=== PATIENT | male | born 1945 | race Caucasian/White ===

== ENCOUNTER 2023-01-23 12:23 | Outpatient (CLI) | payer OTHER, SELFPAY ==
--- NOTE | ~2023-01-23 | US_ITS ---
EXAMINATION: US venous doppler LE RT DATE: 01/23/2023 13:28 INDICATION: Right lower limb edema. TECHNIQUE: Grayscale ultrasound images without and with compression and Doppler ultrasound images of the right lower extremity veins were obtained. COMPARISON: None. FINDINGS: The visualized portions of right common femoral vein, profunda (deep) femoral vein, posterior tibial veins, and greater saphenous vein outflow are patent. There is thrombus in right femoral and poplitea l veins. IMPRESSION: 1. Deep vein thrombosis involving right femoral and popliteal veins. Reviewed, dictated and finalized at location A. 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
== END 2023-01-23 12:24 | disposition home or self-care (01) ==
PROVIDERS: PCP Family Medicine Adolescent Medicine; Visit Provider Family Medicine Adolescent Medicine
DX: R60.0 Localized edema (principal); I82.411 Acute embolism and thrombosis of right femoral vein; I82.431 Acute embolism and thrombosis of right popliteal vein
CPT/HCPCS: 93971

== ENCOUNTER 2025-10-21 15:50 | Emergency (ER) | payer OTHER, SELFPAY ==
--- NOTE | ~2025-10-21 | XR_ITS ---
EXAMINATION: XR knee RT min 4V, 10/21/2025 16:25 MENTAL HEALTH TECH HISTORY: fell going up the stairs COMPARISON: No comparisons available. Findings: No acute fracture or malalignment. No significant degenerative changes. Diffuse soft tissue edema is noted. Impression: No acute fracture or malalignment. Reviewed, dictated and finalized at location P. AL HEALTH TECH Impression: No acute fracture or malalignment.
[2025-10-21 15:59] VITALS: BP 138/61; PULSE 70; RESP 16; TEMP 36.7; O2SAT 98
--- NOTE | 2025-10-21 16:00 | ED.LOWEXIN ---
HPI - Extremity Injury (Lower) General Chief Complaint: Extremity Injury, Lower Stated Complaint: Fell; Right leg injured Time Seen by Provider: 10/21/25 16:02 Source: patient, RN notes reviewed and old records reviewed Mode of arrival: ambulatory Limitations: no limitations History of Present Illness HPI Narrative: 80 year old male accompanied by with complaints of injury to his right leg from falling up the stairs on Friday. Patient has ecchymosis to his right knee and to area below his knee with full mobility noted. Patient has area of abrasion to tissue of right knee more medial aspect of right knee with some swelling of right knee and proximal right leg. Patient reports that he put ice on his knee the first night it hapened but not since, has not taken any medication for his injury and has not been elevating his leg. has been cleansing abrasion and applying some antiseptic ointment.Patient denies hitting his head and no LOC is on daily Xarelto. MD complaint: knee injury (right) Onset (ago): day(s) (3 days ago) Injury: Right: knee (right knee) Type of Injury: blunt Place: home Severity: moderate Treatments prior to arrival: cold therapy (initially) and other (cleansing of abrasion) Related Data Home Medications ?Medication ?Instructions ?Recorded ?Confirmed ?Last Taken ?Type amlodipine 10 mg tablet 10 mg PO DAILY 12/22/23 10/21/25 Unknown History atorvastatin 40 mg tablet 40 mg PO DAILY 12/22/23 10/21/25 Unknown History losartan 50 mg-hydrochlorothiazide 1 tablet PO DAILY 12/22/23 10/21/25 Unknown History 12.5 mg tablet metoprolol succinate 100 mg 100 mg PO DAILY 12/22/23 10/21/25 Unknown History tablet,extended release 24 hr omeprazole 20 mg capsule,delayed 20 mg PO DAILY 12/22/23 10/21/25 Unknown History release tadalafil 20 mg tablet (Cialis) 20 mg PO DAILY PRN sexual activity 07/14/25 10/21/25 Unknown History tadalafil 5 mg tablet (Cialis) 5 mg PO DAILY 07/14/25 10/21/25 Unknown History Allergies Allergy/AdvReac Type Severity Reaction Status Date / Time Penicillins Allergy Unknown Unknown Verified 10/21/25 16:01 Review of Systems Review of Systems: CONSTITUTIONAL: Denies fever, chills, or sweats. EYES: Denies visual changes, redness, or discharge. ENT: Denies rhinorrhea, congestion, sore throat, or otalgia. CARDIOVASCULAR: Denies chest pain, palpitations, or edema. RESPIRATORY: Denies cough or dyspnea. GASTROINTESTINAL: Denies abdominal pain, nausea, vomiting, or diarrhea. GENITOURINARY: Denies dysuria or hematuria. SKIN: Denies rash or itching. MUSCULOSKELETAL: Denies back pain, positive for some right knee pain with abrasion and swelling of right knee and tissue below knee, or myalgia.Is able to walk on his right leg applying full weight bearing. NEUROLOGIC: Denies headache, numbness, or weakness. PSYCHIATRIC: Denies anxiety or depression. All systems reviewed & are unremarkable except as noted in HPI and below PMFSH Past Medical History Medical History GERD (gastroesophageal reflux disease) Hypertension Diabetes Deep vein thrombosis (DVT) of femoral vein of right lower extremity Surgical History Surgical History Stented coronary artery circumflex History of hemorrhoidectomy (2000) Hx of inguinal hernia repair (2007) right Family History Family History Mother Diabetes mellitus Heart problem Sibling No problems noted. Social History Social History Smoking status: Never smoker Alcohol intake: never Substance use: never Lack of Transportation: No Lack of Food: Never True Current Housing: I Have Housing Concerned About Future Housing: No Difficulty Paying Gas/Electric Bills: No Difficulty Paying for Meds: No Currently Unemployed: No Education: High School Diploma/GED Difficulty w/ Childcare or Family Care: No Comments At time of signature, agree with nursing past medical, surgical, social and family history. There is no relevant family history pertinent to the presenting complaint Exam Narrative: GENERAL: Well-appearing, well-nourished, and in no acute distress. HEAD: Normocephalic, atraumatic. EYES: PERRLA and EOMI. ENT: Nares clear, no rhinorrhea or epistaxis. Mucous membranes moist. NECK: Supple.no lymphadenopathy CHEST: Clear to auscultation. No respiratory distress.SAO2 98% on room air HEART: Regular rate and rhythm. No murmur heard. Normal peripheral pulses. ABDOMEN: Soft, nontender, nondistended, normal active bowel sounds. EXTREMITIES: Normal range of motion.Swelling and ecchymosis of right knee with swelling also below knee with abrasion to medial aspect of right knee without drainage.denies any pain to the calf area pedal pulse palpable full ROM of knee noted with patient able to tolerate ambulation with full weight bearing. SKIN: Warm, dry, no rash. abrasion to right knee NEURO: No focal deficits. Alert and oriented x3. Course Course Emergency Course: Patient is aware of diagnosis, understands and agrees to treatment plan.? Anticipatory guidance given.? Patient agrees to follow-up as directed and is aware of reasons to seek care at the emergency department. Portions of this record may have been created with voice recognition software Level of Care: Express Care Visit Vital Signs Vital signs: Vital Signs Temperature 36.7 C 10/21/25 15:59 Pulse Rate 70 10/21/25 15:59 Respiratory Rate 16 10/21/25 15:59 Blood Pressure 138/61 10/21/25 15:59 Pulse Oximetry 98 10/21/25 15:59 Oxygen Delivery Room Air 10/21/25 15:59 Temperature 36.7 C 10/21/25 15:59 Pulse Rate 70 10/21/25 15:59 Respiratory Rate 16 10/21/25 15:59 Blood Pressure 138/61 10/21/25 15:59 Pulse Oximetry 98 10/21/25 15:59 Oxygen Delivery Room Air 10/21/25 15:59 Reviewed MDM - Extremity Injury (Lower) Differential Diagnosis Differential diagnosis: Likely acute internal derangement of knee and other (fracture right knee, contusion of right knee, abrasion right knee) Medical Records Attestation: I reviewed the patient's medical records. Imaging Data Attestation: I personally reviewed and interpreted this imaging study as follows: My impression: no fracture, no significant degeneration changes, diffuse soft tissue swelling Radiologist's impression: [facility] [address] [place] [address] XRay Report Signed Patient: Rodo Nixon : 1945 MR#: [id number] Age: 80 Acct:[id number] Loc: [facility] ADM Date: 10/21/[address]: Ordering Physician: Rose Robertson APRN Date of Service: 10/21/25 Procedure(s): XR knee RT min 4V Accession Number(s): [id number] cc: Rose Robertson APRN; Grady Mota MD~ EXAMINATION: XR knee RT min 4V, 10/21/2025 16:25 ORACLE ADF CONSULTANT HISTORY: fell going up the stairs COMPARISON: No comparisons available. Findings: No acute fracture or malalignment. No significant degenerative changes. Diffuse soft tissue edema is noted. Impression: No acute fracture or malalignment. Reviewed, dictated and finalized at location P. LE ADF CONSULTANT Please be advised this is a medical document. It is intended for [id number] communication. It is written in medical language and may contain unfamiliar abbreviations or verbiage. Medical documents are intended to carry relevant information, facts as evident, and the clinical opinion of the practitioner at the time of the encounter. This report may have been done utilizing a voice recognition system. Attempts have been made to correct errors. However, there may be uncorrected grammatical, spelling, and recognition errors present. The file time of this note does not necessarily represent the time of service. Dictated By: Luis Carlos Quiroga MD 10/21/25 1641 Signed By: <Electronically signed by Luis Carlos Quiroga MD in OV> Critical Care Time Critical Care Time Critical Care Time: No Discharge Plan Discharge Clinical Impression: Pain and swelling of right knee Patient Disposition: Home Condition: Stable Instructions: Antibiotic Form, Knee Pain (ED) Additional Instructions: Tylenol for pain can take Tylenol Arthritis 650 mg po for pain Elevate your right leg as much as possible Follow-up with orthopedic surgeon if any further problems Follow-up with PCP if further problems or concerns Ice to the area 20-30 minutes 4-6 times a day Elevate above heart follow up with your PCP in one week for further evaluation If your symptoms persist, change or worsen significantly before you can contact your personal physician then please, without delay, go to the emergency department for further evaluation. Follow-up with PCP in 7-10 days or sooner if needed Follow up with PCP soon in regards to your blood pressure which is elevated above threshold for referral. Blood pressure above 120/80 may indicate pre-hypertension.138/61 Patient Language: Czech Prescriptions: New cephalexin 500 mg capsule 500 mg PO Q12H Qty: 14 0RF No Action tadalafil [Cialis] 20 mg tablet 20 mg PO DAILY PRN (Reason: sexual activity) Rx Instructions: administer approximately 30min before sexual activity; do not use more than 1 dose per 24hrs tadalafil [Cialis] 5 mg tablet 5 mg PO DAILY atorvastatin 40 mg tablet 40 mg PO DAILY amlodipine 10 mg tablet 10 mg PO DAILY omeprazole 20 mg capsule,delayed release(DR/EC) 20 mg PO DAILY metoprolol succinate 100 mg tablet extended release 24 hr 100 mg PO DAILY losartan-hydrochlorothiazide 50-12.5 mg tablet 1 tablet PO DAILY (DME) blood-glucose meter [Contour Meter] Kit See Rx Instructions .Route Qty: 1 0RF Rx Instructions: As directed (DME) Contour Test Strips Strip See Rx Instructions .Route Qty: 100 0RF Rx Instructions: two times daily (DME) lancets [Accu-Chek Softclix Lancets] Misc See Rx Instructions .Route Qty: 200 0RF Rx Instructions: two times daily (DME) FreeStyle Tracey 3 [place] Misc See Rx Instructions .Route Qty: 1 0RF Rx Instructions: As directed (DME) FreeStyle Tracey 3 Sensor Device See Rx Instructions .Route Qty: 6 12RF Rx Instructions: As directed glimepiride 4 mg tablet See Rx Instructions .ROUTE .COMPLEX Qty: 90 2RF Dose Instruction: TAKE 1 TABLET ORALLY EVERY MORNING ADMINISTER WITH BREAKFAST Rx Instructions: TAKE 1 TABLET ORALLY EVERY MORNING ADMINISTER WITH BREAKFAST Rybelsus 14 mg tablet 14 mg PO DAILY Qty: 90 3RF metformin 500 mg tablet extended release 24 hr 2,000 mg PO DAILY Qty: 360 3RF Xarelto 20 mg tablet 20 mg PO DAILY Qty: 90 3RF Rx Instructions: must administer with evening meal Follow-up/Referrals: Grady Mota MD [Primary Care Provider, [facility]] Time of Disposition: 16:52 Quality [place] Coma Scale Eyes: Open Verbal: Oriented and Alert Motor: Follows Commands Roxann Coma Total Score: 15
== END 2025-10-21 17:02 | disposition home or self-care (01) ==
PROVIDERS: Emergency Provider Registered Nurse; PCP Family Medicine Adolescent Medicine
DX: M25.561 Pain in right knee (principal); M25.461 Effusion, right knee; I10 Essential (primary) hypertension; E11.9 Type 2 diabetes mellitus without complications; Z79.84 Long term (current) use of oral hypoglycemic drugs; K21.9 Gastro-esophageal reflux disease without esophagitis; Z86.718 Personal history of other venous thrombosis and embolism; Z95.5 Presence of coronary angioplasty implant and graft; Z79.01 Long term (current) use of anticoagulants
CPT/HCPCS: 73564; 99213; G0463

== ENCOUNTER 2025-11-05 09:59 | Emergency (ER) | payer OTHER, SELFPAY ==
[2025-11-05 10:06] VITALS: BP 123/71; PULSE 86; RESP 16; TEMP 36.2; O2SAT 98
--- NOTE | 2025-11-05 10:06 | ED_ITS ---
HPI - General Adult General Chief complaint: Extremity Problem,Nontraumatic Stated complaint: right leg pain Time Seen by Provider: 11/05/25 10:06 Source: patient, RN notes reviewed and old records reviewed Mode of arrival: ambulatory Limitations: no limitations History of Present Illness HPI narrative: 80-year-old male presents to the [facility] with complaints of increasing right leg pain, redness, swelling. is giving most of information. reports that had fallen and injured, wound on October 18. Was evaluated on 10/21, x-ray was negative. Did follow-up with primary care provider on 10/24. Scabbed, crusty area noted to the upper right lower leg. Significant redness, tightness, warmth to the lower leg. Patient had been on cephalexin and mupirocin. Primary prescribed tramadol, states that he took it for a day, became confused. Had been taken ibuprofen and Tylenol with no relief. history of DVT right lower leg. reports that he does take Xarelto. Onset (ago): week(s) (2.5) Treatments prior to arrival: NSAID and other ( oral antibiotics, topical antibiotics, acetaminophen) Related Data Home Medications ?Medication ?Instructions ?Recorded ?Confirmed ?Last Taken ?Type amlodipine 10 mg tablet 10 mg PO DAILY 12/22/2312/18 Unknown History atorvastatin 40 mg tablet 40 mg PO DAILY 12/22/2312/18 Unknown History losartan 50 mg-hydrochlorothiazide 1 tablet PO DAILY 0 12/22/23 10/24/25 Unknown History 12.5 mg tablet metoprolol succinate 100 mg 100 mg PO DAILY 12/22/23 1 12/25/24 Unknown History tablet,extended release 24 hr omeprazole 20 mg capsule,delayed 20 mg PO DAILY 10/24/25 Unknown History release tadalafil 20 mg tablet (Cialis) 20 mg PO DAILY PRN sex ual activity 07/14/25 10/24/25 Unknown History tadalafil 5 mg tablet (Cialis) 5 mg PO DAILY 07/14/25 10/24/25 Unknown History Allergies Allergy/AdvReac Type Severity Reaction Status Date / Time Penicillins Allergy Unknown Unknown Verified 11/05/25 10:16 Review of Systems 2 Review of Systems: All systems reviewed & are unremarkable except as noted in HPI and below Constitutional: Constitutional: Reports no additional constitutional complaints Cardiovascular: Cardiovascular: Denies chest pain and Denies dyspnea Respiratory: Respiratory: Reports no additional respiratory complaints, Denies chest congestion, Denies cough and Denies dyspnea Musculoskeletal: Musculoskeletal: Reports as per HPI Integumentary/Breasts: Skin/Breast: Reports as per HPI and Reports change in pigmentation PMFSH Past Medical History Medical History BMI 31.0-31.9,adult GERD (gastroesophageal reflux disease) Hypertension Diabetes Deep vein thrombosis (DVT) of femoral vein of right lower extremity Surgical History Surgical History Stented coronary artery circumflex History of hemorrhoidectomy (2000) Hx of inguinal hernia repair (2007) right Family History Family History Mother Diabetes mellitus Heart problem Sibling No problems noted. 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 Gender identity (if verbalized by the patient): Male Comments At the time of my signature, I reviewed and agree with the nursing past medical, surgical, social, and family history. There is no relevant family history pertinent to the patient complaint. Exam 2 Const: General: cooperative, no acute distress, well developed, alert, ill appearing chronically, uncomfortable and well nourished Nutritional Appearance: well nourished Orientation/consciousness: patient oriented x3 Limitations: no limitations HENMT: Head: normal to inspection Eyes: General: appearance normal, both eyes and all related structures A lignment and Position: alignment normal Neck: Neck: normal visual inspection, full ROM, no lymphadenopathy and no meningeal signs Chest: Chest palpation & inspection: normal inspection of the chest Resp: Effort & Inspection: normal respiratory effort and able to speak in complete sentences Auscultation: clear to auscultation bilaterally, no crackles, no rales, no rhonchi and no wheezes Cardio: Rate: regular rate Neuro: General: patient oriented x3, moves all extremities and no meningeal signs Cognition (Neuro): normal cognition Speech: normal speech Gait exam (Neuro): Normal gait present Extrem: General: normal to inspection and full ROM Right lower extremity: l ower leg Details: erythema, tenderness, pitting edema, warmth and other ( upper medial aspect scabbed area, swelling); no abrasions and no ecchymosis Upper/lower leg/hip images: 1. dry scabbed area 2. 38.5 cm 3. 43 cm. generalized tenderness, herminia yed capillary refill 3-4 sec. Erythema Psych: Appearance: grossly normal and well kempt Mental Status: mental status grossly normal Speech and movement: Normal speech and movement present and Clear speech present Affect: normal affect Attitude: cooperative Course Course Level of Care: Express Care Visit Vital Signs Vital signs: Vital Signs Temperature 97.2 F L 11/05/25 10:06 Pulse Rate 86 11/05/25 10:06 Respiratory Rate 16 11/05/25 10:06 Blood Pressure 123/71 11/05/25 10:06 Pulse Oximetry 98 11/05/25 10:06 Oxygen Delivery Room Air 11/05/25 10:06 Temperature 97.2 F L 11/05/25 10:06 Pulse Rate 86 11/05/25 10:06 Respiratory Rate 16 11/05/25 10:06 Blood Pressure 123/71 11/05/25 10:06 Pulse Oximetry 98 11/05/25 10:06 Oxygen Delivery Room Air 11/05/25 10:06 reviewed Transfer Transfered to: [facility] Transportation: Other ( POV) Transfer rationale: patient with significant swelling, pain and tenderness sending for higher level of care Accepting physician: Dr Joel [facility] Narrative Medical decision making narrative: patient sitting in exam room. Most of past medical history signs and symptoms given by . Significant swelling on the right, concern for DVT versus cellulitis sending for higher level care transfer instructions reviewed with patient and . Go directly to the ER, do not eat or drink until cleared by ER provider All questions have been answered, and the patient deny any further questions Some parts of this dictation were generated by voice recognition software and may contain typographical and/or grammatical inaccuracies. Differential Diagnosis Differential Diagnosis: cellulitis, DVT Discharge Plan Discharge Clinical Impression: Pain and swelling of right lower leg Patient Disposition: Acute Care Hospital Condition: Stable Patient Language: Marshallese Prescriptions: No Action cephalexin 500 mg capsule 500 mg PO Q12H Qty: 14 0RF tadalafil [Cialis] 20 mg tablet 20 mg PO DAILY PRN (Reason: sexual activity) Rx Instructions: administer approximately 30min before sexual activity; do not use more than 1 dose per 24hrs tadalafil [Cialis] 5 mg tablet 5 mg PO DAILY mupirocin [Centany] 2 % ointment 1 applic topical BID Qty: 22 2RF enoxaparin [Lovenox] 80 mg/0.8 mL syringe 80 mg subcut Q12H 30 Days Qty: 48 0RF atorvastatin 40 mg tablet 40 mg PO DAILY amlodipine 10 mg tablet 10 mg PO DAILY omeprazole 20 mg capsule,delayed release(DR/EC) 20 mg PO DAILY metoprolol succinate 100 mg tablet extended release 24 hr 100 mg PO DAILY losartan-hydrochlorothiazide 50-12.5 mg tablet 1 tablet PO DAILY (DME) blood-glucose meter [Contour Meter] Kit See Rx Instructions .Route Qty: 1 0RF Rx Instructions: As directed (DME) Contour Test Strips Strip See Rx Instructions .Route Qty: 100 0RF Rx Instructions: two times daily (DME) lancets [Accu-Chek Softclix Lancets] Misc See Rx Instructions .Route Qty: 200 0RF Rx Instructions: two times daily (DME) FreeStyle Tracey 3 [place] Misc See Rx Instructions .Route Qty: 1 0RF Rx Instructions: As directed (DME) FreeStyle Tracey 3 Sensor Device See Rx Instructions .Route Qty: 6 12RF Rx Instructions: As directed glimepiride 4 mg tablet See Rx Instructions .ROUTE .COMPLEX Qty: 90 2RF Dose Instruction: TAKE 1 TABLET ORALLY EVERY MORNING ADMINISTER WITH BREAKFAST Rx Instructions: TAKE 1 TABLET ORALLY EVERY MORNING ADMINISTER WITH BREAKFAST Rybelsus 14 mg tablet 14 mg PO DAILY Qty: 90 3RF metformin 500 mg tablet extended release 24 hr 2,000 mg PO DAILY Qty: 360 3RF tramadol 50 mg tablet 100 mg PO QID PRN (Reason: pain) Qty: 60 1RF Follow-up/Referrals: Grady Mota MD [Primary Care Provider, Family Practice]
== END 2025-11-05 10:25 | disposition short-term general hospital (02) ==
LOC: EXPCOLL 10:00
PROVIDERS: Emergency Provider Nurse Practitioner; PCP Family Medicine Adolescent Medicine
DX: M79.661 Pain in right lower leg (principal); R22.41 Localized swelling, mass and lump, right lower limb; I10 Essential (primary) hypertension; E11.9 Type 2 diabetes mellitus without complications; Z79.85 Long-term (current) use of injectable non-insulin antidiabetic drugs; K21.9 Gastro-esophageal reflux disease without esophagitis; Z86.718 Personal history of other venous thrombosis and embolism; Z95.5 Presence of coronary angioplasty implant and graft; Z79.01 Long term (current) use of anticoagulants
CPT/HCPCS: 99212; G0463

== ENCOUNTER 2025-11-05 10:36 | Emergency (ER) | payer OTHER, SELFPAY ==
--- OUTSIDE RECORDS SUMMARY | 2025-10-14 07:03 | XMS_ITS | Continuity of Care Document ---
Author Organization [facility] Address [address] [place] [address] Phone Care Team Providers Care Surgical Oncologist Name Role Phone Meghna JIMENEZ, FACC, FSCAI, Lee Unavailable U navailable Medications Medication Instructions Dosage Effective Dates (start - stop) Status Comments Rybelsus 14 mg tablet - Acti ve glimepiride 4 mg tablet - Active tadalafil 5 mg tablet TAKE 1 TABLET BY M OUTH EVERY DAY - Active atorvastatin 40 mg tablet - Active amlodipine 10 mg tablet TAKE 1 TABLET BY MOUTH EVERY DAY - Active Xarelto 20 mg tablet - Activ e tadalafil 20 mg tablet PLEASE SEE ATTACH ED FOR DETAILED DIRECTIONS - Active omeprazole 20 mg capsule,delayed release - Active metoprolol succinate ER 100 mg tablet,extended release 24 hr - Active metformin ER 500 mg tablet,extended release 24 hr TAKE 4 TABLETS BY MOUTH ONCE DAILY - Active brimonidine 0.15 % eye drops - Active timolol maleate 0.5 % eye drops INSTILL 1 DROP INTO RIGHT EYE TWICE A DAY ONLY - Active cefuroxime axetil 500 mg tablet TAKE 1 TABLET BY MOUTH EVERY 12 HOURS - Active Rybelsus 7 mg tablet - Activ e Rybelsus 3 mg tablet TAKE 1 TABLET BY MO UTH EVERY DAY - Active meloxicam 15 mg tablet - Act familia tamsulosin 0.4 mg capsule 0.4 MG ORALLY DAILY - Active losartan 50 mg-hydrochlorothiazide 12.5 mg tablet Take 1 tablet by mouth every day - Active Advance Directives Directive Yes / No Effective Date File Name No Information Encounters Encounter Description Practice Location Reason(s) For Visit Diagnoses Date Provider Providers Copied on Encounter [facility], [address] [facility], [place], [place], [id number], tel:[phone] [facility] [place] No Information Meghna Howard. [address] [place] [address], [place], [place], [id number], . tel:[phone] Family History Family Member Type Diagnosis Age At Onset No Information Payers Payer name Insurance type Covered constitution party ID Authoriza tion(s) No Information Social History Type Description Quantity Date Captured Comments Sex Male Smoking Status No Information Chief Complaint And Reason For Visit No Information Reason For Referral Reason For Referral No Information Plan Of Treatment Date Type Action Status Appointment Rodo Nixon BOOKED History Of Present Illness Encounter Date Complaint History Of Prese nt Illness No Information Functional Status Date Functional Assessmen t No Information Instructions Date Instruction Additional Infor mation No Information Assessments Type Assessment Date No Information Patient Care Teams Name Effective Dates (start - stop) Status Members No Information
--- NOTE | ~2025-11-05 | CT_ITS ---
EXAMINATION: CT LE RT w con DATE: 11/05/2025 13:05 INDICATION: Trauma. TECHNIQUE: Computed tomography (CT) of the right lower limb was performed with 100 mL Omnipaque 350 intravenous contrast. Automated exposure control and iterative reconstruction technique were employed. The dose-length product was 2029.56 mGy-cm. COMPARISON: Right knee radiographs 10/21/25 FINDINGS: The prostate is mildly enlarged. Alignment is normal. No fracture. 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 There is mild tricompartmental osteoarthritis of the knee. No knee joint effusion. There is mild osteoarthritis of first metatarsophalangeal joint. There is subcutaneous edema in the lower limb. There is a subcutaneous hematoma medial to right knee and proximal right tibia measuring 8.4 x 2.0 x 11.0 cm. IMPRESSION: 1. No fracture. 2. Subcutaneous hematoma medial to right knee and proximal right tibia. Reviewed, dictated and finalized at location E. EPERSON
--- NOTE | ~2025-11-05 | US_ITS ---
RIGHT LOWER EXTREMITY VENOUS DUPLEX Clinical History: pain swelling COMPARISON: 01/23/2023 TECHNIQUE: Grayscale, color, duplex/spectral Doppler sonography right leg FINDINGS/IMPRESSION: 1. DVT within femoral vein and popliteal veins, not definitely acute given similar location of DVT in 2022. 2. Otherwise no additional foci of DVT. Reviewed, dictated and finalized at location R. [facility]
[2025-11-05 10:44] VITALS: BP 132/77; PULSE 71; RESP 16; TEMP 36.4; O2SAT 98
[2025-11-05 11:48] LABS: Hematocrit 43.3 % (42.0-52.0); Hemoglobin 13.5 g/dL (14.0-18.0); Immature Granulocyte Percent A 0.6 % (0-0.5); Lymphocytes Absolute Auto 1.26 K/mm3 (0.9-3.2); Mean Corpuscular HGB Conc 31.2 g/dl (32-36); Mean Corpuscular Hemoglobin 27.8 pg (26-34); Mean Corpuscular Volume 89.3 fl (80-100); Nucleated Red Blood Cells Absolute Auto 0.000 K/mm3 (0.0-0.012); Nucleated Red Blood Cells Perc 0.0 % (0.0-0.2); Platelet Count Result 247 k/mm3 (150-375); Red Blood Count 4.85 M/mm3 (4.6-6.20); White Blood Count 6.7 K/mm3 (4.5-10.0)
[2025-11-05 12:00] LABS: INR 1.5; Prothrombin Time 18.0 Seconds (11.1-14.7)
[2025-11-05 12:01] LABS: Partial Thromboplastin Time 35.0 Seconds (22.3-36.8)
[2025-11-05 12:12] LABS: Alanine Aminotransferase 20 U/L (6-50); Albumin Level 4.1 g/dL (3.5-5.1); Alkaline Phosphatase 99 U/L (38-126); Anion Gap 4 mmol/L (4-12); Aspartate Amino Transferase 28 U/L (17-59); Bilirubin,Total 1.3 mg/dL (0.2-1.3); Blood Urea Nitrogen 35 mg/dL (9-20); Calcium 9.3 mg/dL (8.4-10.2); Carbon Dioxide 31 mmol/L (22-30); Chloride 100 mmol/L (98-107); Estimated CRCL calculation 32 ml/min; Estimated Glomerular Filt Rate 40; Glucose 290 mg/dL (65-110); Potassium 4.4 mmol/L (3.4-5.0); Sodium 135 mmol/L (137-145); Total Protein 7.2 g/dL (6.3-8.2)
[2025-11-05 13:02] VITALS: BP 134/72; PULSE 79; RESP 18; O2SAT 97
--- NOTE | 2025-11-05 13:57 | ED.GENADULT ---
HPI - General Adult General Chief complaint: Extremity Injury, Lower Stated complaint: RLE swelling Time Seen by Provider: 11/05/25 11:14 History of Present Illness HPI narrative: Patient 80-year-old gentleman who presents emergency department with chief complaint of redness and swelling to the right lower extremity the patient reports he had a fall down some steps on the of last month the patient reports he was treated with antibiotics as there was some redness in the area and reports he has had progressive swelling of the leg patient does report that he is on an anticoagulant and takes Xarelto the patient states that he was seen in urgent care today and was told to come to the emergency department as it was more swollen patient denies chest pain denies shortness of breath Related Data Home Medications ?Medication ?Instructions ?Recorded ?Confirmed ?Last Taken ?Type amlodipine 10 mg tablet 10 mg PO DAILY 12/22/23 10/24/25 Unknown History atorvastatin 40 mg tablet 40 mg PO DAILY 12/22/23 10/24/25 Unknown History losartan 50 mg-hydrochlorothiazide 1 tablet PO DAILY 12/22/23 10/24/25 Unknown History 12.5 mg tablet metoprolol succinate 100 mg 100 mg PO DAILY 12/22/23 10/24/25 Unknown History tablet,extended release 24 hr omeprazole 20 mg capsule,delayed 20 mg PO DAILY 12/22/23 10/24/25 Unknown History release tadalafil 20 mg tablet (Cialis) 20 mg PO DAILY PRN sexual activity 07/14/25 10/24/25 Unknown History tadalafil 5 mg tablet (Cialis) 5 mg PO DAILY 07/14/25 10/24/25 Unknown History Allergies Allergy/AdvReac Type Severity Reaction Status Date / Time Penicillins Allergy Unknown Unknown Verified 11/05/25 10:16 Review of Systems Review of Systems: A 10 system review of systems was completed on the patient and is negative except for what is stated in the HPI. Nursing and ancillary documentation was reviewed. [facility] Past Medical History Medical History BMI 31.0-31.9,adult GERD (gastroesophageal reflux disease) Hypertension Diabetes Deep vein thrombosis (DVT) of femoral vein of right lower extremity Surgical History Surgical History Stented coronary artery circumflex History of hemorrhoidectomy (2000) Hx of inguinal hernia repair (2007) right Family History Family History Mother Diabetes mellitus Heart problem Sibling No problems noted. 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 Gender identity (if verbalized by the patient): Male Exam Narrative: GENERAL: Well-appearing, well-nourished, and in no acute distress. HEAD: Normocephalic, atraumatic. EYES: PERRLA and EOMI. ENT: Nares clear, no rhinorrhea or epistaxis. Mucous membranes moist. NECK: Supple. CHEST: Clear to auscultation. No respiratory distress. HEART: Regular rate and rhythm. No murmur heard. Normal peripheral pulses. ABDOMEN: Soft, nontender, nondistended, normal active bowel sounds. EXTREMITIES: Normal range of motion. There is 1+ edema right lower extremity there is redness below the knee and swelling consistent with hematoma. SKIN: Warm, dry, no rash. NEURO: No focal deficits. Alert and oriented x3. PSYCH: Normal mood and affect. Course Vital Signs Vital signs: Vital Signs Temperature 36.4 C 11/05/25 10:44 Pulse Rate 71 11/05/25 10:44 Respiratory Rate 16 11/05/25 10:44 Blood Pressure 132/77 11/05/25 10:44 Pulse Oximetry 98 11/05/25 10:44 Oxygen Delivery Room Air 11/05/25 10:44 Temperature 36.4 C 11/05/25 10:44 Pulse Rate 79 11/05/25 13:02 Respiratory Rate 18 11/05/25 13:02 Blood Pressure 134/72 11/05/25 13:02 Pulse Oximetry 97 11/05/25 13:02 Oxygen Delivery Room Air 11/05/25 10:44 MDM MDM Narrative Medical decision making narrative: venous duplex was obtained that showed evidence of a DVT in the femoral vein. Is unsure whether this is chronic or acute the patient is on a anticoagulate and the patient will be flipped to subcutaneous Lovenox twice daily and the patient should follow-up for repeat ultrasound. The CT scan of the right lower extremity showed no evidence of fracture but did show a hematoma present initial plan was to admit the patient as he has failed outpatient therapy with oral anticoagulants the family in discussion states that they are comfortable doing Lovenox shots at home and patient will be given a prescription for Lovenox they were instructed to return precautions and should follow up with primary care provider Differential Diagnosis Differential Diagnosis: DVT, hematoma, contusion, Lab Data 11/05/25 11:41 11/05/25 11:41 Labs: Lab Results 11/05/25 Range/Units 11:41 WBC 6.7 (4.5-10.0) K/mm3 RBC 4.85 (4.6-6.20) M/mm3 Hgb 13.5 L (14.0-18.0) g/dL Hct 43.3 (42.0-52.0) % MCV 89.3 (80-100) fl MCH 27.8 (26-34) pg MCHC 31.2 L (32-36) g/dl RDW 14.3 (11.5-14.5) % Plt Count 247 (150-375) k/mm3 MPV 9.2 (7.4-10.4) fl Immature Gran % (Auto) 0.6 H (0-0.5) % Neut % (Auto) 67.1 (45.5-73.1) % Lymph % (Auto) 18.9 (18.3-44.2) % Stanley % (Auto) 8.2 (2.6-8.5) % Eos % (Auto) 4.2 (0-4.4) % Baso % (Auto) 1.0 (0.2-1.2) % Lymph # (Auto) 1.26 (0.9-3.2) K/mm3 Stanley # (Auto) 0.6 (0.1-0.6) K/mm3 Eos # (Auto) 0.3 (0-0.3) K/mm3 Baso # (Auto) 0.1 (0.0-0.1) K/mm3 Abs Immat Gran (auto) 0.04 H (0.00-0.031) K/mm3 Absolute Neuts (auto) 4.5 (1.3-6.7) K/mm3 Absolute Nucleated RBC 0.000 (0.0-0.012) K/mm3 Nucleated RBC % 0.0 (0.0-0.2) % PT 18.0 H (11.1-14.7) Seconds INR 1.5 APTT 35.0 (22.3-36.8) Seconds Sodium 135 L (137-145) mmol/L Potassium 4.4 (3.4-5.0) mmol/L Chloride 100 (98-107) mmol/L Carbon Dioxide 31 H (22-30) mmol/L Anion Gap 4 (4-12) mmol/L BUN 35 H (9-20) mg/dL Creatinine 1.68 H (0.7-1.3) mg/dL Estim Creat Clear Calc 32 ml/min Estimated GFR 40 L (59 - ) Glucose 290 H (65-110) mg/dL Calcium 9.3 (8.4-10.2) mg/dL Total Bilirubin 1.3 (0.2-1.3) mg/dL AST 28 (17-59) U/L ALT 20 (6-50) U/L Alkaline Phosphatase 99 (38-126) U/L Total Protein 7.2 (6.3-8.2) g/dL Albumin 4.1 (3.5-5.1) g/dL Imaging Data Radiologist's impression: ITS Impressions Lower Extremity CT 11/05/25 13:47 IMPRESSION: 1. No fracture. 2. Subcutaneous hematoma medial to right knee and proximal right tibia. Discharge Plan Discharge Clinical Impression: Hematoma, DVT (deep venous thrombosis) Patient Disposition: Home Condition: Stable Instructions: Antibiotic Form, Deep Vein Thrombosis (ED), Hematoma (ED) Patient Language: Macedonian Prescriptions: New enoxaparin [Lovenox] 80 mg/0.8 mL syringe 80 mg subcut Q12H 30 Days Qty: 48 0RF Discontinued Xarelto 20 mg tablet 20 mg PO DAILY Qty: 90 3RF Rx Instructions: must administer with evening meal No Action cephalexin 500 mg capsule 500 mg PO Q12H Qty: 14 0RF tadalafil [Cialis] 20 mg tablet 20 mg PO DAILY PRN (Reason: sexual activity) Rx Instructions: administer approximately 30min before sexual activity; do not use more than 1 dose per 24hrs tadalafil [Cialis] 5 mg tablet 5 mg PO DAILY mupirocin [Centany] 2 % ointment 1 applic topical BID Qty: 22 2RF atorvastatin 40 mg tablet 40 mg PO DAILY amlodipine 10 mg tablet 10 mg PO DAILY omeprazole 20 mg capsule,delayed release(DR/EC) 20 mg PO DAILY metoprolol succinate 100 mg tablet extended release 24 hr 100 mg PO DAILY losartan-hydrochlorothiazide 50-12.5 mg tablet 1 tablet PO DAILY (DME) blood-glucose meter [Contour Meter] Kit See Rx Instructions .Route Qty: 1 0RF Rx Instructions: As directed (DME) Contour Test Strips Strip See Rx Instructions .Route Qty: 100 0RF Rx Instructions: two times daily (DME) lancets [Accu-Chek Softclix Lancets] Misc See Rx Instructions .Route Qty: 200 0RF Rx Instructions: two times daily (DME) FreeStyle Tracey 3 Hewett Misc See Rx Instructions .Route Qty: 1 0RF Rx Instructions: As directed (DME) FreeStyle Tracey 3 Sensor Device See Rx Instructions .Route Qty: 6 12RF Rx Instructions: As directed glimepiride 4 mg tablet See Rx Instructions .ROUTE .COMPLEX Qty: 90 2RF Dose Instruction: TAKE 1 TABLET ORALLY EVERY MORNING ADMINISTER WITH BREAKFAST Rx Instructions: TAKE 1 TABLET ORALLY EVERY MORNING ADMINISTER WITH BREAKFAST Rybelsus 14 mg tablet 14 mg PO DAILY Qty: 90 3RF metformin 500 mg tablet extended release 24 hr 2,000 mg PO DAILY Qty: 360 3RF tramadol 50 mg tablet 100 mg PO QID PRN (Reason: pain) Qty: 60 1RF Follow-up/Referrals: Grady Mota MD [Primary Care Provider, Family Practice]
[2025-11-05] MEDS: ENOXAPARIN 100 MG/ML SYRINGE 90 MG SUB-Q (14:42)
[2025-11-05 14:51] VITALS: BP 137/78; PULSE 78; RESP 14; O2SAT 99
== END 2025-11-05 14:53 | disposition home or self-care (01) ==
PROVIDERS: Emergency Provider Emergency Medicine; PCP Family Medicine Adolescent Medicine
DX: M79.604 Pain in right leg (principal); M79.89 Other specified soft tissue disorders; I10 Essential (primary) hypertension; E11.9 Type 2 diabetes mellitus without complications; Z79.01 Long term (current) use of anticoagulants; Z86.718 Personal history of other venous thrombosis and embolism
CPT/HCPCS: 36415; 73701; 80053; 85025; 85610; 85730; 93971; 96372; 99284; J1650; Q9967